=== PATIENT | male | born 1970 | race Caucasian/White ===

== ENCOUNTER 2018-10-01 14:32 | Emergency (ER) | payer BC ==
[2018-10-01 14:37] VITALS: BP 130/90; PULSE 96; TEMP 97.7; BMI 28.7
--- NOTE | 2018-10-01 14:39 | PDOC ---
Rapid Medical Evaluation Chief Complaint: Allergic Reaction Time Seen by Provider: 10/01/18 14:34 Medical Evaluation: Allergies Allergy/AdvReac Type Severity Reaction Status Date / Time No Known Allergies Allergy Verified 10/01/18 14:34 Vital Signs Temp Pulse Resp BP Pulse Ox 97.7 F 96 H 18 130/90 100 10/01/18 14:35 10/01/18 14:35 10/01/18 14:35 10/01/18 14:35 10/01/18 14:35 10/01/18 14:38 I have performed a brief in-person evaluation of this patient. The patient presents with a chief complaint of: s/p injection for shoulder pain this am and since then has had generalized itching, no resp sxs Pertinent physical exam findings:Stable w/ clear chest/lungs, no obvious rash I have ordered the following:nothing The patient will proceed to the ED for further evaluation. Discharge Disposition - Diagnosis Genital pruritus - Referrals - Patient Instructions - Post Discharge Activity
[2018-10-01] MEDS ORDERED: diphenhydrAMINE HCL 25 MG CAPSULE (FP) PO ONE ×2 (14:44→14:47)
[2018-10-01] MEDS ORDERED: RANITIDINE HCL 150 MG TABLET (FP) PO ONE (14:58)
[2018-10-01] MEDS ORDERED: RANITIDINE HCL 150 MG TABLET (FP) ONE (15:05)
--- NOTE | 2018-10-01 15:25 | PDOC ---
History of Present Illness - General Chief Complaint: Allergic Reaction Stated Complaint: ALLERGIC REACTION FROM INJECTION Time Seen by Provider: 10/01/18 14:34 History Source: Patient - History of Present Illness Initial Comments: 10/01/18 15:29 Chief complaint: ALLERGIC reaction 48-year-old male with a history of right shoulder issues, was seen by the orthopedist today, and given injection of methyl prednisone and lidocaine who developed itching all over his body. No shortness of breath, no swelling to his throat, face, lips, tongue, no respiratory distress. Patient took Zyrtec but continues to have itching. Shouldn't denies ever having an ALLERGIC reaction, has had injections in his ankle before. Patient has no fever. GENERAL/CONSTITUTIONAL: No fever, weakness. dizziness HEAD, EYES, EARS, NOSE AND THROAT: No change in vision. No ear pain or discharge. No sore throat. CARDIOVASCULAR: No chest pain RESPIRATORY: No shortness of breath or cough GASTROINTESTINAL: No pain, nausea, vomiting, diarrhea or constipation GENITOURINARY: No dysuria MUSCULOSKELETAL: No neck or back pain SKIN: No rash NEUROLOGIC: No headache, vertigo, loss of consciousness, or loss of sensation. GENERAL: The patient is awake, alert, and fully oriented, in no acute distress. HEAD: Normal with no signs of trauma. EYES: Pupils equal, round and reactive to light, sclera anicteric, conjunctiva clear. ENT: pharynx: no erythema, no exudate, uvula midline NECK: supple CHEST: clear, nontender, rr ABD: soft, nontender BACK: no tenderness or signs of injury EXTREMITIES: Normal range of motion, no edema. NEUROLOGICAL: Normal speech, normal gait. SKIN: Warm, Dry, no obvious rash but has Pruritus over most of his body Past History - Past Medical History Allergies/Adverse Reactions: Allergies Allergy/AdvReac Type Severity Reaction Status Date / Time No Known Allergies Allergy Verified 10/01/18 14:34 Home Medications: Ambulatory Orders No Home Medications 0 dose .ROUTE UTDICT 09/08/12 COPD: No CHF: No - Immunization History Immunization Up to Date: Yes - Suicide/Smoking/Psychosocial Hx Smoking Status: No Smoking History: Never smoked Number of Cigarettes Smoked Daily: 0 Hx Alcohol Use: No Drug/Substance Use Hx: No *Physical Exam - Vital Signs Last Vital Signs Temp Pulse Resp BP Pulse Ox 97.7 F 96 H 18 130/90 100 10/01/18 14:35 10/01/18 14:35 10/01/18 14:35 10/01/18 14:35 10/01/18 14:35 ED Treatment Course - Medications Given in the ED: ED Medications Discontinued Medications Generic Name Dose Route Start Last Admin Trade Name Shaheen PRN Reason Stop Dose Admin Diphenhydramine HCl 50 mg 10/01/18 14:44 10/01/18 14:47 Benadryl - PO 10/01/18 14:45 50 mg ONCE ONE Administration Ranitidine HCl 300 mg 10/01/18 14:58 10/01/18 15:05 Zantac - PO 10/01/18 14:59 300 mg ONCE ONE Administration Medical Decision Making - Medical Decision Making 10/01/18 15:32 48-year-old male who got injection of methyl prednisone and lidocaine in his shoulder now with itching all over his body, no obvious rash, no respiratory distress, no facial or oral swelling, no throat tightness. Patient without fever. Patient to the Zyrte without relief, will give Benadryl and reassess. Will not started on steroids given reaction. We'll also give Zantac in the ER, will send home with instructions for Benadryl and Pepcid. 10/01/18 15:35 pt improved Discussed issues, findings, results, applicable medications and treatments and follow-up. All these were understood and all questions were answered *DC/Admit/Observation/Transfer Diagnosis at time of Disposition: Genital pruritus - Discharge Dispostion Disposition: HOME Condition at time of disposition: Stable Decision to Admit order: No - Referrals - Patient Instructions Printed Discharge Instructions: DI for General Allergic Reactions Additional Instructions: Continue taking the Benadryl 25-50 mg every 4-6 hours. Take Pepcid 20 mg daily, this will help with the reaction Return to the ER if shortness of breath, throat tightening or getting worse instead of better Do not take over the recommended dosage for Benadryl, this can lead to having problems urinating follow up with Dr. Cassidy on Thursday - Post Discharge Activity
== END 2018-10-01 15:41 | disposition home or self-care (01) ==
LOC: JERFT 14:32
DX: L29.8 Other pruritus (principal); T50.995A Adverse effect of other drugs, medicaments and biological substances, initial encounter; Y92.038 Other place in apartment as the place of occurrence of the external cause
CPT/HCPCS: 99282-25